=== PATIENT | female | born 1985 | race Caucasian/White ===

== ENCOUNTER 2019-10-23 00:15 | Day surgery (SDC) | payer OTHER, SELFPAY ==
[2019-10-09 14:33] VITALS: BMI 30.9
--- NOTE | 2019-10-22 14:12 | WPDANESEPP ---
Anes - Eval Pre Procedure Procedure: Operation Date: 10/23/19 10:30 Proposed Procedures p Abdomen Liposuction - Henrry Corley MD Date/Time: 10/22/19 14:12 Pre Op Diagnosis: localized adiposity Patient Data Age: 34 Gender: F Height: 5 ft 3 in Weight: 79.3 kg Allergies Allergy/AdvReac Type Severity Reaction Status Date / Time No Known Allergies Allergy Unverified 06/26/19 09:11 Home Medications Medication Instructions Recorded Confirmed Type esomeprazole magnesium 20 mg 20 mg PO DAILY 06/26/19 10/09/19 History capsule,delayed release levonorgestrel 20 mcg/24 hours (5 1 device I-UTERINE ONCE 06/26/19 10/09/19 History yrs) 52 mg intrauterine device Patient hx anesthesia problems: none Family hx anesthesia problems: none PMFSH Past Medical History Medical History Anxiety and depression Breast ptosis History of keloid of skin Localized adiposity Micromastia Surgical History Surgical History (Updated 10/22/19 @ 14:14 by Malachi Ang CRNA) H/O LEEP History of cholecystectomy History of tonsillectomy Social History Social History Smoking status: Never smoker Alcohol intake: current Gender identity (if verbalized by the patient): Female Exam Day of Procedure 10/22/19 14:12 Patient weight: overweight
[2019-10-23] VITALS (17 sets, daily range): BP systolic 97–137; BP diastolic 56–88; PULSE 61–98; RESP 12–114; TEMP 35.5–36.8; O2SAT 96–100
[2019-10-23] MEDS: LACTATED RINGERS 1,000 ML 30 ML IV CONT ×2 (09:00→13:16)
--- NOTE | 2019-10-23 09:03 | P.PNAN_ITS ---
Anes - Eval Final PreProcedure Day of Procedure 10/23/19 09:03 Patient weight: obese Heart: regular rate and rhythm Lungs: clear to auscultation Airway: Mallampati scale class II Neurological: alert and oriented Last oral intake: >/= 8 hours ASA classification: II Emergent: no Anesthetic plan: proceed Anesthesia type and monitoring: general ETT and standard monitoring Informed Consent: The patient's anesthetic plan and its attendant risks and [place] efits were discussed with the patient/family/POA. Questions were solicited and answers provided to the satisfaction of the patient/family/POA.
--- NOTE | 2019-10-23 10:07 | WPDHPUPDATE1 ---
History and Physical Update Update Date/Time: 10/23/19 10:07 History and Physical has been reviewed, including an updated exam of the patient. There are NO changes in the patient's condition. Risks, benefits, and alternatives have been discussed and questions answered. Patient agrees to proceed with procedure.
--- NOTE | 2019-10-23 10:37 | PM.PROC ---
Procedure Note - Detailed Date of procedure: 10/23/19 Pre-op diagnosis: localized adiposity Post-op diagnosis: same Procedure performed: Suction lipectomy of abdomen, flank, mons. Description of procedure: Patient was marked in the preoperative holding area with her verification. She was taken to the operating room placed supine on the operating room table. Anesthesia provided by anesthesiology and prepped and draped in a standard sterile fashion. Surgical time-out was taken. stab incisions were made and I used a tumescent solution. Once adequate time for hemostasis I completed suction lipectomy of the abdomen flank and mons using a 4 mm basket cannula and the S.A.F.E. technique to a good rolling pinch test. Also tracked the volume removed from each area to ensure symmetry. During the procedure we did turn the patient from side to side in order to get a good contour. Care was taken to protect the patient during this step. Single 5-0 Nylon placed at access sites. Topifoam and abdominal binder was placed. Patient was awoke and taken the PACU without difficulty. All instrument sponge counts were correct at the end of the case. Anesthesia: GETA Surgeon: Henrry Corley MD Estimated blood loss (mL): 35 Drains: No Packing: No Pathology: none sent Complications: No immediate complications Condition: stable Disposition: PACU Findings: 3,500 total lipoaspirate completed from abdomen, mons, flanks.
[2019-10-23] MEDS: ceFAZolin 2 GM/D5W 50 ML 2 GM/50 ML BAG IVPB (10:41)
[2019-10-23] MEDS: LACTATED RINGERS 1,000 ML 125 ML IV CONT (15:27)
[2019-10-23] MEDS: MORPHINE SULFATE 2 MG/ML INJ IV PUSH (15:30)
--- NOTE | 2019-10-23 17:46 | PC.NURSE ---
This patient, Olga Lidia Hernandez, was received from PACU on 10/23/19 at 1500. Patient/family oriented to unit policies and routines
[2019-10-23] MEDS: carisoprodoL 350 MG TABLET PO ×2 (17:52→23:14)
[2019-10-23] MEDS: DOCUSATE SODIUM 100 MG CAPSULE PO (19:16)
[2019-10-23] MEDS: oxyCODONE/ACETAMINOPHEN 5-325 MG TABLET PO (19:18)
[2019-10-23] MEDS: ACETAMINOPHEN 325 MG TABLET 650 MG PO (23:14)
[2019-10-23] MEDS: IBUPROFEN 600 MG TABLET PO (23:14)
[2019-10-24 05:10] VITALS: BP 117/74; PULSE 89; RESP 16; TEMP 36.6; O2SAT 98
[2019-10-24] MEDS: ACETAMINOPHEN 325 MG TABLET 650 MG PO (05:16)
[2019-10-24] MEDS: carisoprodoL 350 MG TABLET PO (05:16)
[2019-10-24] MEDS: IBUPROFEN 600 MG TABLET PO (05:16)
--- NOTE | 2019-10-24 07:18 | WPDPN ---
Progress Note: A&P Assessment and Plan (1) Localized adiposity: Code(s): E65 - Localized adiposity Status: Acute Assessment and Plan: Doing very well after suction lipectomy. Plan for discharge home. Slowly increase activity. Continue compression 23 hours a day. Follow up in 1 week. Today I spent 15 minutes going over the care after she leaves. What monitor for. Made sure answered all of her questions to her satisfaction today. I will see her back. (2) History of keloid of skin: Code(s): Z87.2 - Personal history of diseases of the skin and subcutaneous tissue Status: Acute Assessment and Plan: She knows what monitor for. (3) Family history of DVT: Code(s): Z82.49 - Family history of ischemic heart disease and other diseases of the circulatory system Status: Acute Assessment and Plan: She knows that shortness of breath, chest pain calf and a calf tenderness are medical emergencies. With all medical emergencies dial 911/proceed to the emergency room. Review of Systems Review of Systems: All systems reviewed & are unremarkable except as noted in HPI and below Exam Const: General: comfortable, no acute distress, alert and awake; No acute distress Orientation/consciousness: oriented to person HENMT: Head: normal to inspection Ears: external ears normal General nose exam: Normal external nose present Face and sinus: normal facial exam Eyes: General: appearance normal, both eyes and all related structures Periorbital: periorbital findings normal Eyelids: eyelids normal Conjunctivae: conjunctivae normal Neck: Neck: normal visual inspection Chest: Chest palpation & inspection: normal inspection of the chest Resp: Effort & Inspection: normal respiratory effort and able to speak in complete sentences GI: Inspection: normal to inspection Skin: Other: Abdomen and flanks are soft. There is no signs of infection. No hematoma. No seroma. Neuro: General: oriented to person Extrem: Other: No calf tenderness. Negative Homans. Psych: Appearance: grossly normal Mental Status: mental status grossly normal Objective Data Vital Signs Vital Signs: Vital Signs - 24 hr 10/23/19 08:30 10/23/19 13:15 10/23/19 13:20 Temperature 36.8 C 35.5 C L Pulse Rate 89 80 74 Respiratory Rate 18 16 114 H Blood Pressure 126/77 97/59 L 103/56 L Pulse Oximetry 100 100 10/23/19 13:30 10/23/19 13:45 10/23/19 14:00 Temperature 36.1 C L 36.5 C 36.5 C Pulse Rate 73 79 83 Respiratory Rate 16 14 12 Blood Pressure 109/67 113/76 126/79 Pulse Oximetry 100 98 97 10/23/19 14:15 10/23/19 14:30 10/23/19 14:40 Temperature 36.6 C 36.1 C L 36.1 C L Pulse Rate 86 81 79 Respiratory Rate 14 14 14 Blood Pressure 123/77 127/76 127/80 Pulse Oximetry 98 96 96 10/23/19 15:00 10/23/19 15:15 10/23/19 15:30 Temperature 36.4 C Pulse Rate 87 85 90 Respiratory Rate 16 18 Blood Pressure 126/84 118/76 137/85 Pulse Oximetry 99 100 10/23/19 16:00 10/23/19 16:30 10/23/19 17:00 Temperature Pulse Rate 93 98 96 Respiratory Rate 18 Blood Pressure 130/79 129/81 129/88 Pulse Oximetry 10/23/19 20:09 10/23/19 23:18 10/24/19 05:10 Temperature 36.6 C 36.4 C 36.6 C Pulse Rate 93 61 89 Respiratory Rate 16 16 16 Blood Pressure 127/81 121/82 117/74 Pulse Oximetry 100 96 98 Intake/Output Intake/Output: Intake & Output 10/21/19 10/22/19 10/23/19 10/24/19 23:59 23:59 23:59 23:59 Intake Total 450 Output Total 400 Balance 50 Meds/Results Medications: Active Medications Generic Name Dose Route Start Last Admin Trade Name Su PRN Reason Stop Dose Admin Acetaminophen 650 mg 10/23/19 20:06 10/24/19 05:16 Tylenol Tablet PO 650 mg Q6H PRN Administration Mild Pain (1-3) or Fever Carisoprodol 350 mg 10/23/19 18:00 10/24/19 05:16 Soma PO 350 mg Q6HR RUFINA Administration Docusate Sodium 100 mg 10/23/19 21:00 10/23/19 19:16
--- NOTE | 2019-10-24 07:26 | PM.DS ---
DS: Admitting Diagnosis Admitting Diagnosis Admitting Diagnosis: Localized adiposity DS: Discharge Diagnosis Discharge Diagnosis (1) Localized adiposity: Code(s): E65 - Localized adiposity Status: Acute Assessment and Plan: s/p suction lipectomy of abdomen, flank, mons. Doing very well. Will discharge home. (2) History of keloid of skin: Code(s): Z87.2 - Personal history of diseases of the skin and subcutaneous tissue Status: Acute Assessment and Plan: She knows what monitor for. (3) Family history of DVT: Code(s): Z82.49 - Family history of ischemic heart disease and other diseases of the circulatory system Status: Acute Assessment and Plan: We had a lengthy discussion about the care. What monitor for. She understands when to call 911/proceed to the emergency room. DS: Summary Time Spent with Patient Time attestation: Total time spent providing and/or coordinating discharge services: 15 minutes Exam Const: General: comfortable, no acute distress, alert and awake; No acute distress Orientation/consciousness: oriented to person HENMT: Head: normal to inspection Ears: external ears normal General nose exam: Normal external nose present Face and sinus: normal facial exam Eyes: General: appearance normal, both eyes and all related structures Periorbital: periorbital findings normal Eyelids: eyelids normal Conjunctivae: conjunctivae normal Neck: Neck: normal visual inspection Chest: Chest palpation & inspection: normal inspection of the chest Resp: Effort & Inspection: normal respiratory effort and able to speak in complete sentences GI: Inspection: normal to inspection Skin: Other: Abdomen and flanks are soft. There is no signs of infection. No hematoma. No seroma. Neuro: General: oriented to person Extrem: Other: No calf tenderness. Negative Homans. Psych: Appearance: grossly normal Mental Status: mental status grossly normal Discharge Plan Discharge Patient Disposition: Home, Self-Care Discharge Instructions: POST OPERATIVE DISCHARGE INSTRUCTIONS FOR HENRRY CORLEY M.D. [facility] [place] [address] [address] for 24 hours after anesthesia and while you are taking pain medication. Take all prescribed medication as directed Diet as tolerated. No lifting or activity that raises blood pressure for 48 hours. Regular walking / ambulation. No showering until directed to. Once you shower do not take pain medication before showering as the combination of medication and heat may cause you to feel dizzy or pass out. No pools or tubs for 2 weeks. Call with any questions or concerns. Continue abdominal binder 23 hours per day Dressing Care: May shower If you have any questions or concerns, please call the office . If it is after hours you will be directed to the production line assembler exchange. Shortness of breath, chest pain, or other medical emergency dial 911 / proceed to the Emergency Room. Follow-up/Referrals: Henrry Corley MD [Physician] - 1 Week Discharge Medications: New carisoprodol 350 mg Tablet 350 mg PO Q6HR Qty: 28 RF: 0 oxycodone-acetaminophen 5-325 mg Tablet 1 - 2 tablet PO Q6H PRN (Reason: Pain RATED 7-10) Qty: 15 RF: 0 docusate sodium 100 mg Capsule 100 mg PO Q12HR Qty: 14 RF: 0 ibuprofen 600 mg Tablet 600 mg PO Q6H PRN (Reason: Pain Rated 4-6) Qty: 15 RF: 0 ondansetron HCl (PF) 4 mg/2 mL Solution 4 mg IVPUSH Q6H PRN (Reason: Nausea) Qty: 30 RF: 0 Continued esomeprazole magnesium [Nexium] 20 mg capsule,delayed release(DR/EC) 20 mg PO DAILY RF: 0 Mirena 20 mcg/24 hours (5 yrs) 52 mg intrauterine device 1 device I-UTERINE ONCE RF: 0
[2019-10-24 08:00] VITALS: BP 108/66; PULSE 84; RESP 18; TEMP 36.7; O2SAT 99
[2019-10-24] MEDS: PANTOPRAZOLE 40 MG TABLET PO (08:59)
[2019-10-24] MEDS: DOCUSATE SODIUM 100 MG CAPSULE PO (08:59)
[2019-10-24] MEDS: ENOXAPARIN 40 MG/0.4 ML SYRINGE SUB-Q (09:00)
--- NOTE | 2019-10-24 09:00 | WPDANESPN ---
Anes - Prog Note Post-Op Date/Time: 10/24/19 09:00 Cardiovascular status: normal Respiratory status: normal Airway patency: baseline Mental status: baseline Post-Op hydration status: normal Vital Signs: Last Vital Signs Temp 36.6 C 10/24/19 05:10 Pulse 89 10/24/19 05:10 Resp 16 10/24/19 05:10 BP 117/74 10/24/19 05:10 Pulse Ox 98 10/24/19 05:10 Post-procedural complaints: none Patient Feedback: Patient satisfied with anesthetic care.
== END 2019-10-24 09:29 | disposition home or self-care (01) ==
LOC: ANHSURGERY 10:41 → ANHOB2 14:52
PROVIDERS: Visit Provider Surgery Plastic and Reconstructive Surgery
PROC: (CPT 15877; principal; 2019-10-23 10:30)
DX: Z41.1 Encounter for cosmetic surgery (principal); E65 Localized adiposity
CPT/HCPCS: 15877; 99199; A9270; J0131; J0171; J0690; J1100; J1170; J1650; J2250; J2270; J2405; J2704; J3010; J7120